=== PATIENT | male | born 1975 | race African-American/Black ===

== ENCOUNTER 2023-11-07 08:37 | Outpatient (CLI) | payer OTHER ==
--- NOTE | 2023-11-07 09:16 | Sleep Patient Instructions ---
Sleep Center Visit Summary - Patient Visit Information Reason for Visit: Initial consultation - Patient Instructions Additional Instructions: You will continue with BiPAP therapy with pressure set at 16/6 cmH2O. A supply prescription will be sent to the DME supplier you chose with an order to update your supplies. We encourage you to continue to try to lose weight. Please follow up with the sleep care office in 1 year. - Clinic Information Contact: [facility] [address] [place] [address] [email or web address] T: [phone]
--- NOTE | 2023-11-07 09:23 | SLEEP CARE CONSULTATION ---
Information from patient questionnaire entered by Shanelle Alvares. I have reviewed and concur with the information entered by Shanelle Alvares. This document represents the service I personally performed and the decisions made by me, Cara Wade ARNP. History of Present Illness Service Date and Time: 11/07/2023 0837 Reason for Visit: New patient, Previously diagnosed sleep apnea (in 2013), sleep apnea on CPAP therapy Date of Onset: 10YRS Usual bedtime: 2300 Time it takes to fall asleep: 10MINS Snores at night: Yes Observed to quit breathing while asleep: Yes Sleeps alone due to snoring: No Number of times waking at night: 0 Toss, Turn, or Twitch while sleeping: Yes Recalls having dreams: Yes Usually gets out of bed at: 0630 Feels refreshed in the morning: Yes Morning headache: No Sleepy or fatigued during the day: Yes Ever fallen asleep while driving: Yes Takes day naps: No Dreams during day naps: No Prior sleep studies: Yes Year and Where: [facility] Type of Sleep Study: Polysomnography Additional HPI information: VIVIANA SCHWARTZ was previously diagnosed to have mild, AHI 12.1, obstructive sleep apnea-hypopnea syndrome as seen in sleep study dated 04/25/2014 through [facility] in [place] and comes in today to establish care for BIPAP therapy. - Parasomnia Symptoms Ever been unable to move upon waking from sleep: No Walks in sleep: No Talks in sleep: No Ever acted out dreams in sleep: Yes Ever felt weak in the knees when startled or emotional: No Bothered by creepy, crawly, restless sensations in legs: No Problems with memory or concentration: No CPAP Compliance Data - Data Reviewed with Patient Average duration of nightly device use: 5.7 hours Compliance rate %: 70 (/30 days used; 4+ adherance 53/90 days) Current pressure setting (cmH2O): 16/6 Average residual AHI: 1 Compliance data discussion: He has an [place]ian obtained BiPAP, [employer]. He is using a nasal mask that goes over the nose. He does not have a supplier for his CPAP. Subjective Missed days of use due to: reports: other (nasal soreness occasionally) Patient concerns: reports: air blowing in eyes (occasional, just adjusts mask), condensation in mask/hose (occasional), dry mouth, nose, throat (dry nose, occasional soreness). denies: aerophagia, mask discomfort, mask leak noise, nasal congestion, epistaxis Observed to snore while using device: No Current pressure setting perceived as: comfortable On therapy, patient: reports: sleeping better, awakening more refreshed, being more awake and alert during the day, more rested overall. denies: drowsiness while driving Initial [place] Sleepiness Scale score: 6 (10/16/23) Past Medical History Past Medical History: reports: Hypertension, Anxiety, Depression Social History The patient's occupation is a [employer]. Patient is and lives in [place]. Have you smoked in the past 12 months: No Alcohol use: Yes Alcohol amount and frequency: OCCASSIONAL Caffeine use: Yes Caffeine amount and frequency: EVERY ONCE IN A WHILE Family History Family history of sleep disordered breathing: Yes Family Hx Sleep Apnea: Father: Snoring, Sleep apnea - Treated Allergies and Home Medications Known drug allergies: No Drug allergies reviewed: Yes Home medication list reviewed: Yes (as listed) Allergy and home medication list: Allergies No Known Drug Allergies Allergy (Verified 11/07/23 08:43) Home Medications DULoxetine [Cymbalta] See Rx Instructions .ROUTE .COMPLEX 11/06/23 [History] Juice Plus See Rx Instructions .ROUTE .COMPLEX 11/06/23 [History] Telmisartan/Hydrochlorothiazid [Micardis Hct 40-12.5 mg Tablet] See Rx Instructions .ROUTE .COMPLEX 11/06/23 [History] Review of Systems Cardiovascular: reports: high blood pressure Gastrointestinal: denies: heartburn Neurological: denies: headaches Psychiatric: reports: depression Ear/Nose/Throat: reports: wisdom teeth removed. denies: tonsillectomy Immunologic: reports: sneezing, allergies to food or environment Physical Exam Vital signs obtained and entered by: SHANELLE Stanford MA Blood Pressure: 143/98 (RIGHT ARM ; has not taken medications) Cuff size: long Heart Rate: 66 O2 Saturation: 90 Height: 5 ft 11 in Weight: 261 lb 6.4 oz Body Mass Index: 36.4 BMI Classification: Obese Neck circumference: 16.75 Heart: regular rate and rhythm Lungs: clear bilaterally Impression and Plan 1. Obstructive Sleep Apnea-Hypopnea Syndrome, mild, with good treatment compliance and good apnea control. On CPAP therapy, the patient has better sleep quality and is more rested overall. It has been 10 years since his last sleep study. I think it would be advantageous to get an updated baseline and we will order a PSG. He needs a DME supplier. I will have my fruit coordinator inform of DME options. A DWO prescription will then be made. Patient advised to contact this office if further supply problems. Patient's apnea severity and rationale for treatment to reduce apnea, improve sleep quality and reduce cardiovascular and cerebrovascular events was reviewed. I also reviewed the benefit of consistent device use of CPAP for hypertension, depression/anxiety. 2. Obesity, unspecified. Currently patients BMI is 36.4. Obesity increases the risk of apnea, CPAP pressure requirements and overall health risks especially cardiovascular and diabetes. Thus patient is advised to lose weight. * Continue BIPAP pressure at 16/6 cmH2O * PSG to verify baseline, last study 2013 * Transfer DME * Update supply prescription * Notify me if snoring with mask or feeling that the pressure is too much or too little * Attempt to lose weight * Call this office if any problems using CPAP * Return for follow up after sleep study, or sooner if concerns arise Counseling Topics: Weight loss health impact Prescriptions: Device supplies Follow up with Sleep Care in: other (after sleep study) Visit Type: In Office Time Spent with Patient (minutes): 32 Provider Statement: I spent 100% of the Face to Face Visit with the patient with greater than 50% spent counseling the patient and coordination of care.
[2023-11-07 09:28] VITALS: BP 143/98; O2SAT 90
== END 2023-11-07 08:38 | disposition home or self-care (01) ==
LOC: SC 08:37
PROVIDERS: ATTEND Nurse Practitioner Family
DX: G47.33 Obstructive sleep apnea (adult) (pediatric) (principal); I10 Essential (primary) hypertension; F32.A Depression, unspecified; E66.9 Obesity, unspecified; Z68.36 Body mass index [BMI] 36.0-36.9, adult
CPT/HCPCS: 99203; 99212

== ENCOUNTER 2023-12-15 20:38 | Outpatient (CLI) | payer OTHER | END 2023-12-15 20:39 | disposition home or self-care (01) | LOC: SC 20:38 | PROVIDERS: ATTEND Nurse Practitioner Family | DX: G47.33 Obstructive sleep apnea (adult) (pediatric) (principal) | CPT/HCPCS: 95810 ==

== ENCOUNTER 2024-01-31 09:04 | Outpatient (CLI) | payer OTHER ==
--- NOTE | 2024-01-31 09:32 | Sleep Patient Instructions ---
Sleep Center Visit Summary - Patient Visit Information Reason for Visit: Sleep study follow-up - Patient Instructions Additional Instructions: You will continue with BiPAP therapy with pressure set at 16/6 cmH2O. A supply prescription for supplies and to set you up with a supply company was completed today. We encourage you to continue to try to lose weight. Please follow up with the sleep care office in 1 year. - Clinic Information Contact: [facility] [address] [place] [address] [email or web address] T: [phone]
--- NOTE | 2024-01-31 09:33 | SLEEP CARE CONSULTATION ---
Information from patient questionnaire entered by Shanelle Alvares. I have reviewed and concur with the information entered by Shanelle Alvares. This document represents the service I personally performed and the decisions made by , Cara Wade ARNP. History of Present Illness Service Date and Time: 01/31/2024 09 Initial [place] Sleepiness Scale score: 6 (10/16/23) Current [place] Sleepiness Scale score: 4 (01/31/24) Additional HPI information: VIVIANA SCHWARTZ returns for follow up and results of the recently performed polysomnography. The sleep study done on 12/15/23 showed severe obstructive sleep apnea with an average AHI of 31.5 and rob oxygen saturation of 79%. I explained the pathophysiology behind obstructive sleep apnea. We then spent quite a bit of time discussing different treatment options. For mild obstructive sleep apnea, surgery and oral appliance are alternatives to nasal CPAP therapy but in moderate or severe cases, nasal CPAP is the most effective and reliable treatment. I reviewed the impact of weight changes on sleep apnea and strongly recommended losing weight. The patient opted to continue with the BiPAP therapy set at 16/6 cmH20. Patient was cautioned about risks of drowsy driving until sleepiness symptoms resolve. Sleep Study - Results Type of Sleep Study: Polysomnography (COMPLETED 12/15/23) Prior sleep studies: Yes Year and Where: [facility] Polysomnography/Home Sleep Study results: IMPRESSION: The quality of the study is good. The patient had normal sleep efficiency. The sleep architecture was abnormal for sleep fragmentation and reduced amount of time spent in REM and slow wave sleep (N3). Respiratory monitoring showed severe obstructive sleep apnea-hypopnea (AHI = 31.5) associated with frequent arousals, oxyhemoglobin desaturation and moderate hypoxia (rob oxygen saturation of 79%). The respiratory events occurred predominantly during supine sleep (supine AHI = 39.8; non-supine = 9.87). Snore was light to loud in intensity. There was no significant periodic leg movement of sleep. Cardiac rhythm was normal sinus rhythm occasional premature ventricular contractions. No abnormal behavior (parasomnia) observed during the night. Allergies and Home Medications Known drug allergies: No Drug allergies reviewed: Yes Home medication list reviewed: Yes (no changes) Allergy and home medication list: Allergies No Known Drug Allergies Allergy (Verified 01/29/24 10:50) Review of Systems Review of systems same as previous: Yes (no change) Physical Exam Vital signs obtained and entered by: SHANELLE Stanford MA Blood Pressure: 133/89 (left arm) Cuff size: long Heart Rate: 69 O2 Saturation: 100 Height: 5 ft 11 in Weight: 262 lb 9.6 oz Body Mass Index: 36.6 BMI Classification: Obese Impression and Plan 1. Obstructive Sleep Apnea-Hypopnea Syndrome, severe, with lowest oxygen saturat ion of 79%. His previous sleep study done in 2013 had diagnosed mild BERNARD with AHI of 12.1. He is currently on a BiPAP set at 16/6 cmH2O with good control of his sleep apnea. Continuing with positive pressure therapy may benefit his hypertension, depression and anxiety. The patient will be continued on his BiPAP therapy with pressure set at 16/6 cmH2O. Patient's apnea severity and rationale for treatment to reduce apnea, improve sleep quality and reduce cardiovascular and cerebrovascular events was reviewed. 2. Hypoxemia, moderate, with a rob oxygen saturation of 79% and 11.4 minutes spent under 90%. The baseline oxygen saturation was normal with an average oxygen saturation of 95%. 3. [Obesity][Overweight], unspecified. Currently patients BMI is []. Obesity increases the risk of apnea, BiPAP pressure requirements and overall health risks especially cardiovascular and diabetes. Thus patient is advised to[ continue to try to] lose weight. * Continue BiPAP pressure at [16/6] cmH2O * Transfer DME * Update supply prescription * Notify me if snoring with mask or feeling that the pressure is too much or too little * Attempt to lose weight * Call this office if any problems using BiPAP * Return for follow up in 12 months, or sooner if concerns arise Counseling Topics: Weight loss health impact Prescriptions: Device supplies Follow up with Sleep Care in: 1 year Visit Type: In Office Time Spent with Patient (minutes): 20 Provider Statement: I spent 100% of the Face to Face Visit with the patient with greater than 50% spent counseling the patient and coordination of care.
[2024-01-31 09:38] VITALS: BP 133/89; O2SAT 100
== END 2024-01-31 09:05 | disposition home or self-care (01) ==
LOC: SC 09:04
PROVIDERS: ATTEND Nurse Practitioner Family
DX: G47.33 Obstructive sleep apnea (adult) (pediatric) (principal); R09.02 Hypoxemia; E66.9 Obesity, unspecified; Z68.36 Body mass index [BMI] 36.0-36.9, adult
CPT/HCPCS: 99212; 99213